=== PATIENT | female | born 1960 | race Caucasian/White ===

== ENCOUNTER 2019-09-02 21:20 | Emergency (ER) | payer OTHER ==
[~2019-09-02] VITALS: Ht 167.6 cm; Wt 75.0 kg
--- NOTE | 2019-09-02 21:48 | NUR ---
PT FRIDA HERNANDEZ ACCOMP BY . WAS AT [facility], HAD SYNCOPAL EPISODE "I DON'T THINK I WAS COMPLETELY OUT BC I COULD STILL HEAR EVERYTHING". PER PTS EYES ROLLED BACK IN HEAD AND HE HELPED HER TO GROUND, NO TRAUMA. PT VOMITED MULTIPLE TIMES AFTER THAT, STS FELT MUCH BETTER AFTER VOMITING. A&OX4 GCS 15. DENIES NAUSEA/DIZZINESS/CHEST PAIN/SOB AT THIS TIME. ST ON MONITOR. NO PMHX. FSBS 150. PT HYPERTENSIVE BUT STS IS ALWAYS HYPERTENSIVE ON INITIAL BP. AWAITING MD LAUREN. CALL NICKERSON IN [place]ACH.
--- NOTE | 2019-09-02 21:58 | NUR ---
BP IMPROVED, PT GIVEN WATER FOR PO CHALLENGE, IVF INFUSING.
[2019-09-02] MEDS ORDERED: SODIUM CHLORIDE 0.9% 1,000ML IVBOLUS ONE (22:00)
[2019-09-02] MEDS ORDERED: PLEASE ENTER ALLERGIES MC SCH (22:00)
[2019-09-02 22:06] LABS: BASOPHILS # (AUTO) 0.05 x10^3/uL (0-0.1); BASOPHILS % (AUTO) 1 % (0-1); EOSINOPHILS # (AUTO) 0.08 x10^3/uL (0-0.4); EOSINOPHILS % (AUTO) 1 % (1-7); LYMPHOCYTES # (AUTO) 2.79 x10^3/uL (1-3.4); LYMPHOCYTES % (AUTO) 26 % (22-44); MD NO; MEAN CORPUSCULAR HEMOGLOBIN 31.8 pg (27.0-34.8); MEAN CORPUSCULAR HGB CONC 33.1 g/dL (32.4-35.8); MEAN PLATELET VOLUME 7.4 fL (7.4-10.4); MONOCYTES # (AUTO) 0.52 x10^3/uL (0.2-0.8); MONOCYTES % (AUTO) 5 % (2-9); NEUTROPHILS # (AUTO) 7.23 x10^3/uL (1.8-6.8); NEUTROPHILS % (AUTO) 68 % (42-75); PLATELET COUNT 340 x10^3/uL (130-400); RED BLOOD COUNT 4.36 x10^6/uL (3.82-5.3); RED CELL DISTRIBUTION WIDTH 13.6 % (9.6-15.2)
--- NOTE | 2019-09-02 22:14 | NUR ---
REPORT TO MARCO A BUTT
--- NOTE | 2019-09-02 22:16 | NUR ---
received report from DAQUAN Kwok.
[2019-09-02 22:17] LABS: ALANINE AMINOTRANSFERASE 36 U/L (12-78); ALBUMIN 3.6 g/dL (3.4-5.0); ANION GAP 6 mmol/L (5-15); CALCIUM 8.4 mg/dL (8.5-10.1); CHLORIDE 108 mmol/L (98-107); CREATININE 0.54 mg/dL (0.55-1.02)
[2019-09-02 22:21] LABS: ALKALINE PHOSPHATASE 113 U/L (45-117); BILIRUBIN,TOTAL 0.2 mg/dL (0.2-1.0); TOTAL PROTEIN 7.3 g/dL (6.4-8.2); TROPONIN I < 0.015 ng/mL (0.000-0.045)
--- NOTE | 2019-09-02 22:39 | NUR ---
patient passed po challenge. no vomiting noted. all labs resulted.chart up for re-evaluation.
--- NOTE | 2019-09-02 23:05 | NUR ---
ERP at bedside for re-eval.
[2019-09-02 23:19] VITALS: BP 167/80
--- NOTE | 2019-09-02 23:19 | NUR ---
patient discharged with instruction. verbalized understanding
== END 2019-09-02 23:22 | disposition home or self-care (01) ==
LOC: ED 22:19
DX: R55 Syncope and collapse (principal); R11.2 Nausea with vomiting, unspecified; E86.0 Dehydration; F17.200 Nicotine dependence, unspecified, uncomplicated
CPT/HCPCS: 36415; 80053; 84484; 85025; 93005; 96360; 99284; J7030